=== PATIENT | female | born 1995 | race American Indian/Alaskan Native ===

== ENCOUNTER 2016-09-23 13:21 | Emergency (ER) | payer OTHER ==
[2016-09-23 13:21] VITALS: BMI 22.8
[2016-09-23 13:29] VITALS: RESP 16
[2016-09-23] MEDS ORDERED: Sodium Chloride 0.9% 1,000 ML IV STA (14:00)
--- NOTE | 2016-09-23 14:03 | ED PDOC ---
HPI: Abdomen Time Seen by Provider: 09/23/16 14:01 Chief Complaint (Nursing): Abdominal Pain Chief Complaint (Provider): abdominal pain History Per: Patient (21 y/o female Cxn 2 years ago here with LLQ pain worsening since last night. STates she notes bodyaches as well. Has had lower pelvic pain x 1 year ongoing associated with dysparenia. Denies any vaginal discharge. Denies any dysuria.) Past Medical History Reviewed: Historical Data, Nursing Documentation, Vital Signs Vital Signs: Last Vital Signs Temp 99.0 F 09/23/16 13:26 Pulse 106 H 09/23/16 13:26 Resp 16 09/23/16 13:26 BP 132/60 09/23/16 13:26 Pulse Ox 100 09/23/16 19:07 - Surgical History Surgical History: (June 2014) - Family History Family History: States: No Known Family Hx - Home Medications Home Medications: Ambulatory Orders Medication Instructions Recorded Naproxen [Naprosyn] 1 tab PO BID PRN #25 tab 06/23/15 Ondansetron ODT [Zofran ODT] 1 odt PO BID PRN #6 odt 06/23/15 Naproxen 375 mg PO Q8 PRN #21 tab 09/17/15 diaZEpam [Valium] 5 mg PO DAILY PRN #2 tab 09/17/15 Doxycycline Monohydrate 100 mg PO BID #28 tablet 09/23/16 Metronidazole [Flagyl] 1 tab PO BID #28 tablet 09/23/16 Naproxen [Naprosyn Tab] 375 mg PO Q8 PRN #21 tab 09/23/16 Pantoprazole Sodium [Protonix] 20 mg PO DAILY #14 tablet. 09/23/16 oxyCODONE/Acetaminophen [Percocet 1 ea PO Q6 PRN #8 tab 09/23/16 5/325 mg Tab] - Allergies Allergies/Adverse Reactions: Allergies Allergy/AdvReac Type Severity Reaction Status Date / Time No Known Allergies Allergy Verified 09/23/16 13:26 Review of Systems ROS Statement: Except As Marked, All Systems Reviewed And Found Negative Gastrointestinal: Positive for: Abdominal Pain Physical Exam - Reviewed Nursing Documentation Reviewed: Yes Vital Signs Reviewed: Yes - Physical Exam Appears: Positive for: Well, Non-toxic, No Acute Distress Head Exam: Positive for: ATRAUMATIC, NORMAL INSPECTION, NORMOCEPHALIC Skin: Positive for: Normal Color, Warm, DRY Eye Exam: Positive for: EOMI, Normal appearance, PERRL ENT: Positive for: Normal ENT Inspection Neck: Positive for: Normal, Painless ROM Cardiovascular/Chest: Positive for: Regular Rate, Rhythm Respiratory: Positive for: CNT, Normal Breath Sounds Gastrointestinal/Abdominal: Positive for: Normal Exam, Bowel Sounds, Soft Pelvic Exam: Positive for: Tender W/Cervical Motion, Tender Adnexa, Tender Uterus. Negative for: Discharge Back: Positive for: Normal Inspection Extremity: Positive for: Normal ROM Neurologic/Psych: Positive for: Alert, Oriented - Laboratory Results Result Diagrams: 09/23/16 14:30 09/23/16 14:30 Urine POC: Negative Urine dip results: Negative for: Leukocyte Esterase, Blood, Nitrate, Ketones, Glucose, Bilirubin, Protein - ECG O2 Sat by Pulse Oximetry: 100 - Progress ED Course And Treament: morphine 4mg iv x 1 dose pepcid 20 mg iv x 1 dose NS 1 liter 500ml per hour Pelvic US: FINDINGS: Examination limited by bowel gas. UTERUS: Measures 8.0 x 6.0 x 3.2 cm. Anteverted. ENDOMETRIUM: Measures 1 mm in diameter. CERVIX: No cervical abnormality identified. RIGHT OVARY: Measures 2.5 x 3.4 x 1.4 cm. Blood flow is demonstrated. LEFT OVARY: Measures 2.7 x 3.0 x 2.1 cm. Blood flow is demonstrated. 1.5 cm left ovarian dominant follicle/cyst. FREE FLUID: No significant free fluid noted. OTHER FINDINGS: None. IMPRESSION: Examination limited by bowel gas. No acute findings. See above. PATIENT TREATED WITH ROCEPHIN 250 MG IM X 1 DOSE [address] abd/pelvis IMPRESSION: 1. Lack of oral contrast opacification limits evaluation of the bowel. Apparent thickening of the some of the small bowel loops, raising suspicion for enteritis. Stool is noted throughout the colon. Correlate clinically. 2. Mild hepatomegaly. The remainder of the findings are as described above. Thank you for allowing us to participate in the care of your patient. Dictated and Authenticated by: Hermelindo Echeverria MD Disposition - Clinical Impression Clinical Impression: Abdominal pain in female - Patient ED Disposition Is Patient to be Admitted: No - Disposition [facility] Disposition: Routine/Home Disposition Time: 19:06 Condition: FAIR Prescriptions: Doxycycline Monohydrate 100 mg PO BID #28 tablet Metronidazole [Flagyl] 1 tab PO BID #28 tablet Naproxen [Naprosyn Tab] 375 mg PO Q8 PRN #21 tab PRN Reason: Pain, Moderate (4-7) oxyCODONE/Acetaminophen [Percocet 5/325 mg Tab] 1 ea PO Q6 PRN #8 tab PRN Reason: Pain, Severe (8-10) Pantoprazole Sodium [Protonix] 20 mg PO DAILY #14 tablet. Instructions: Pelvic Pain in Women (ED) Forms: [facility] ED School/Work Excuse
[2016-09-23 14:46] LABS: BASO % 0.4 % (0.0-2.0); EOS % 0.1 % (0.0-4.0); HEMATOCRIT 38.4 % (34.0-47.0); LYMPH # 0.4 K/uL (1.0-4.3); LYMPH % 5.7 % (20.0-40.0); MEAN CELL VOLUME 83.8 fl (81.0-99.0); MEAN CORPUSCULAR HEMOGLOBIN 27.5 pg (27.0-31.0); MEAN CORPUSCULAR HGB CONC 32.8 g/dL (33.0-37.0); MEAN PLATELET VOLUME 9.9 fl (7.2-11.7); MONO # 0.7 K/uL (0.0-0.8); MONO % 11.6 % (0.0-10.0); NEUT # 5.1 K/uL (1.8-7.0); NEUT % 82.2 % (50.0-75.0); PLATELET COUNT 154 K/uL (130-400); RED CELL DISTRIBUTION WIDTH 13.5 % (11.5-14.5); WHITE BLOOD COUNT 6.2 K/uL (4.8-10.8)
[2016-09-23 14:50] LABS: ALB/GLOB RATIO 1.4 (1.0-2.1); ALKALINE PHOSPHATASE 55 U/L (38-126); ALT/SGPT 30 U/L (9-52); AST/SGOT 30 U/L (14-36); BILIRUBIN,TOTAL 0.6 mg/dl (0.2-1.3); BLOOD UREA NITROGEN 8 mg/dl (7-17); CALCIUM 9.2 mg/dL (8.4-10.2); CARBON DIOXIDE 24 mmol/L (22-30); CHLORIDE 101 mmol/L (98-107); GFR AFRICAN-AMERICAN > 60; GLUCOSE,RANDOM 118 mg/dL (65-105); LIPASE 21 U/L (23-300); POTASSIUM 3.4 MMOL/L (3.6-5.0); SODIUM 138 mmol/l (132-148); TOTAL PROTEIN 8.1 G/DL (6.3-8.2)
--- NOTE | 2016-09-23 15:57 | US ---
HISTORY: left adnexal tenderness COMPARISON: Pelvic ultrasound performed 06/14/15 TECHNIQUE: Transvaginal pelvic ultrasound FINDINGS: Examination limited by bowel gas. UTERUS: Measures 8.0 x 6.0 x 3.2 cm. Anteverted. ENDOMETRIUM: Measures 1 mm in diameter. CERVIX: No cervical abnormality identified. RIGHT OVARY: Measures 2.5 x 3.4 x 1.4 cm. Blood flow is demonstrated. LEFT OVARY: Measures 2.7 x 3.0 x 2.1 cm. Blood flow is demonstrated. 1.5 cm left ovarian dominant follicle/cyst. FREE FLUID: No significant free fluid noted. OTHER FINDINGS: None. IMPRESSION: Examination limited by bowel gas. No acute findings. See above.
[2016-09-23] MEDS ORDERED: cefTRIAXone (Rocephin) 250 mg Inj IM ONE (17:06)
[2016-09-23 17:07] LABS: NEUTROPHIL 79 % (42-75); TOTAL CELLS COUNTED 100
[2016-09-23] MEDS ORDERED: cefTRIAXone (Rocephin) 250 mg Inj ONE (18:05)
[2016-09-23] MEDS ORDERED: Sodium Chloride 0.9% 50 ML IV ONE (18:48)
[2016-09-23] MEDS ORDERED: Iohexol 300 100 ML IJ ONE (18:48)
[2016-09-23 20:25] VITALS: BP 101/60; PULSE 87; TEMP 98; O2SAT 99
--- NOTE | 2016-09-24 10:23 | CT ---
PROCEDURE: CT Abdomen and Pelvis with contrast HISTORY: Pelvic pain 1 year duration. Dyspareunia By history, negative test (concurrent with this examination). COMPARISON: September 23, 2016. Pelvic ultrasound TECHNIQUE: Contrast dose: 90 cc Omnipaque 300. Radiation dose: Total exam DLP = 352.52 mGy-cm. This CT exam was performed using one or more of the following dose reduction techniques: Automated exposure control, adjustment of the mA and/or kV according to patient size, and/or use of iterative reconstruction technique. FINDINGS: LOWER THORAX: Unremarkable. LIVER: Unremarkable. No gross lesion or ductal dilatation. GALLBLADDER AND BILE DUCTS: Unremarkable. PANCREAS: Unremarkable. No gross lesion or ductal dilatation. SPLEEN: Unremarkable. ADRENALS: Unremarkable. No mass. KIDNEYS AND URETERS: Unremarkable. No hydronephrosis. No solid mass. VASCULATURE: Unremarkable. No aortic aneurysm. BOWEL: Unremarkable. No obstruction. No gross mural thickening. APPENDIX: Normal appendix. PERITONEUM: Unremarkable. No free fluid. No free air. LYMPH NODES: Unremarkable. No enlarged lymph nodes. BLADDER: Unremarkable. REPRODUCTIVE: Endometrial canal measures approximately 10 mm. Trace free fluid identified in the pelvis/cul de sac. BONES: No acute fracture. OTHER FINDINGS: None. IMPRESSION: No acute findings related to/accounting for the clinical presentation. Additional benign and/or incidental findings described above. Concordant results (preliminary interpretation) provided by [facility]. Procedure Completed: 19:07. Preliminary ([facility]) Report: Dictated and Authenticated: 19:53. Final Interpretation: 10:21. September 12, 2016.
== END 2016-09-23 20:25 | disposition home or self-care (01) ==
LOC: H.ER 13:21
DX: N83.202 Unspecified ovarian cyst, left side (principal)

== ENCOUNTER 2016-12-11 18:23 | Inpatient (IN) | payer OTHER ==
[2016-12-11 18:23] VITALS: BMI 22.8
[2016-12-11 20:02] LABS: BASO % 0.3 % (0.0-2.0); EOS % 0.4 % (0.0-4.0); HEMATOCRIT 36.5 % (34.0-47.0); LYMPH # 1.3 K/uL (1.0-4.3); LYMPH % 10.6 % (20.0-40.0); MEAN CELL VOLUME 82.7 fl (81.0-99.0); MEAN CORPUSCULAR HEMOGLOBIN 27.5 pg (27.0-31.0); MEAN CORPUSCULAR HGB CONC 33.3 g/dL (33.0-37.0); MEAN PLATELET VOLUME 9.6 fl (7.2-11.7); MONO # 0.7 K/uL (0.0-0.8); MONO % 5.7 % (0.0-10.0); NEUT # 10.1 K/uL (1.8-7.0); NRBC % 0.1 % (0.0-0.0); RED CELL DISTRIBUTION WIDTH 14.1 % (11.5-14.5); WHITE BLOOD COUNT 12.1 K/uL (4.8-10.8)
[2016-12-11 20:16] LABS: ALB/GLOB RATIO 1.2 (1.0-2.1); ALKALINE PHOSPHATASE 66 U/L (38-126); ALT/SGPT 22 U/L (9-52); AST/SGOT 18 U/L (14-36); BILIRUBIN,TOTAL 0.6 mg/dl (0.2-1.3); BLOOD UREA NITROGEN 6 mg/dl (7-17); CALCIUM 9.5 mg/dL (8.4-10.2); CARBON DIOXIDE 21 mmol/L (22-30); CHLORIDE 101 mmol/L (98-107); GFR AFRICAN-AMERICAN > 60; GLUCOSE,RANDOM 86 mg/dL (65-105); POTASSIUM 3.5 MMOL/L (3.6-5.0); SODIUM 136 mmol/l (132-148); TOTAL PROTEIN 8.1 G/DL (6.3-8.2)
--- NOTE | 2016-12-11 20:46 | ED PDOC ---
HPI: Abdomen Time Seen by Provider: 12/11/16 19:35 Chief Complaint (Nursing): GI Problem History Per: Patient History/Exam Limitations: no limitations Onset/Duration Of Symptoms: Days (x2) Current Symptoms Are (Timing): Still Present Additional Complaint(s): Valarie Stokes is a 21 year old female that presents to the ED with a chief complaint of abdominal pain, nausea, nonbloody vomiting, and nonbloody diarrhea that she has been experiencing for the past 2 days. Patient reports that she has been PO intolerant, and has experienced decreased urination. Of Note: Patient is G2, P1, EGA 9 weeks. OBGYN: Dr. Jimbo Salazar : 2 Para: 1 Past Medical History Reviewed: Historical Data, Nursing Documentation, Vital Signs Vital Signs: Last Vital Signs Temp 98.9 F 12/11/16 18:33 Pulse 76 12/11/16 18:33 Resp 16 12/11/16 18:33 BP 105/68 12/11/16 18:33 Pulse Ox 99 12/11/16 23:06 - Medical History PMH: No Chronic Diseases - Surgical History Surgical History: (June 2014) - Family History Family History: States: Unknown Family Hx - Social History Current smoker - smoking cessation education provided: No Alcohol: None Drugs: Denies - Home Medications Home Medications: Ambulatory Orders Medication Instructions Recorded Naproxen [Naprosyn] 1 tab PO BID PRN #25 tab 06/23/15 Ondansetron ODT [Zofran ODT] 1 odt PO BID PRN #6 odt 06/23/15 Naproxen 375 mg PO Q8 PRN #21 tab 09/17/15 diaZEpam [Valium] 5 mg PO DAILY PRN #2 tab 09/17/15 Doxycycline Monohydrate 100 mg PO BID #28 tablet 09/23/16 Metronidazole [Flagyl] 1 tab PO BID #28 tablet 09/23/16 Naproxen [Naprosyn Tab] 375 mg PO Q8 PRN #21 tab 09/23/16 Pantoprazole Sodium [Protonix] 20 mg PO DAILY #14 tablet. 09/23/16 oxyCODONE/Acetaminophen [Percocet 1 ea PO Q6 PRN #8 tab 09/23/16 5/325 mg Tab] - Allergies Allergies/Adverse Reactions: Allergies Allergy/AdvReac Type Severity Reaction Status Date / Time No Known Allergies Allergy Verified 09/23/16 13:26 Review of Systems Gastrointestinal: Positive for: Nausea, Vomiting, Abdominal Pain, Diarrhea, Other (Patient unable to tolerate PO. ) Genitourinary Female: Negative for: Frequency (decreased urination) Physical Exam - Reviewed Nursing Documentation Reviewed: Yes Vital Signs Reviewed: Yes - Physical Exam Appears: Positive for: Non-toxic, No Acute Distress Head Exam: Positive for: ATRAUMATIC, NORMOCEPHALIC Skin: Positive for: Normal Color, Warm ENT: Positive for: Other (dry mucous membranes). Negative for: Normal ENT Inspection Gastrointestinal/Abdominal: Positive for: Tenderness (Suprapubic tenderness). Negative for: Normal Exam Neurologic/Psych: Positive for: Alert, Oriented. Negative for: Motor/Sensory Deficits - Laboratory Results Result Diagrams: 12/11/16 19:52 12/11/16 19:52 - ECG O2 Sat by Pulse Oximetry: 99 (RA) Pulse Ox Interpretation: Normal Medical Decision Making Medical Decision Making: Impression: 21 year old female with abdominal pain, nausea, and vomiting in setting of early Plan: * Beta HCG * CMP * Urine Dip * Urine * Urinalysis * Dextrose 5% 1000 mLs at 1000 mLs/hr * Reglan 10 mg IVPB * US OB Transvaginal * Reevaluation 22:49 Labs reviewed, showed no clinically significant abnormalities with the exception of large ketones in urine. Patient reports mild improvement in symptoms. Discussed with Dr. Salazar, patient's OBGYN, patient will be hospitalized as observation patient. Clinical Impression: Hyperemesis Gravidarum Scribe Attestation: Documented by Jackie Prabhakar, acting as a scribe for Gilles Simmons MD. Provider Scribe Attestation: All medical record entries made by the Scribe were at my direction and personally dictated by me. I have reviewed the chart and agree that the record accurately reflects my personal performance of the history, physical exam, medical decision making, and the department course for this patient. I have also personally directed, reviewed, and agree with the discharge instructions and disposition. Disposition - Clinical Impression Clinical Impression: Hyperemesis gravidarum - Disposition Disposition Time: 22:49 Condition: FAIR - Pt Status Changed To: Hospital Disposition Of: Observation
[2016-12-11] MEDS: Dextrose 5%/0.45% NS 1,000 ML IV SCH ×3 (20:59→23:45)
[2016-12-11] MEDS ORDERED: Dextrose 5%/0.45% NS 1,000 ML IV SCH ×2 (22:00→23:30)
[2016-12-11 23:23] LABS: RBC URINE 2 /hpf (0-3); URINE BACTERIA RARE (<OCC); URINE BILIRUBIN NEGATIVE (NEGATIVE); URINE BLOOD NEGATIVE (NEGATIVE); URINE COLOR YELLOW (YELLOW); URINE GLUCOSE (UA) NEG (Normal); URINE KETONE 80 mg/dL (NEGATIVE); URINE LEUKOCYTE ESTERASE NEG Leu/uL (Negative); URINE PROTEIN NEGATIVE (NEGATIVE); URINE UROBILINOGEN 0.2-1.0 mg/dL (0.2-1.0); WBC URINE 2 /hpf (0-5)
[2016-12-12] MEDS: Dextrose 5%/0.45% NS 1,000 ML IV SCH ×5 (00:30→16:36)
[2016-12-12] MEDS: Prenatal Multivit/Folic Acid/Iron Tab PO SCH (08:32)
[2016-12-12] MEDS ORDERED: Patient's Own Med (Pnv With Ca,No.72/Iron/Fa [Pnv Prenatal Plus Multivit Tab] 1 TAB) PO SCH (09:00)
--- NOTE | 2016-12-12 10:07 | US ---
HISTORY: Abdominal pain in COMPARISON: Comparison made with prior study 09/23/2016 TECHNIQUE: Transvaginal sonographic evaluation of the pelvis performed FINDINGS: UTERUS: Measures approximately 9.8 x 4.6 x 7.1 cm cm. Normal in size and appearance. No fibroid or other mass lesion seen. There is a single living intrauterine gestation with measurements as follows: Gestational sac: MS D = 3.83 cm = 9 weeks 0 days Yolk sac: 0.2 cm pole: 2.42 cm = 9 weeks 1 day Heart motion: 178 BPM Average ultrasound age: 9 weeks 1 day +/-0 weeks 4 days SUKI based on average ultrasound age: 0407/15/2017 CERVIX: Cervix is closed measuring approximately 3.8 cm. There is small nabothian cyst RIGHT OVARY: Measures approximately 2.4 x 1.1 x 2.4 cm. No solid mass. Normal flow. LEFT OVARY: Measures approximately 2.5 x 1.9 x 2.2 cm. No solid mass. Normal flow. FREE FLUID: No gross free fluid seen in the cul de sac. IMPRESSION: Single living intrauterine gestation with average ultrasound age approximately 9 weeks 1 day +/-0 weeks 4 days. Preliminary report provided by overnight radiology service
[2016-12-13 00:54] VITALS: O2SAT 99
[2016-12-13 07:31] VITALS: BP 95/61; PULSE 76; RESP 20; TEMP 98.2
[2016-12-13] MEDS: Prenatal Multivit/Folic Acid/Iron Tab PO SCH (08:37)
--- NOTE | 2016-12-13 11:07 | CP.PCM.HP ---
History of Present Illness - History of Present Illness History of Present Illness: iup at 9+ weeks nausea and vomiting Present on Admission - Present on Admission Any Indicators Present on Admission: No Review of Systems - Constitutional Constitutional: As Per HPI - EENT Eyes: As Per HPI Ears: As Per HPI - Breasts Breasts: As Per HPI - Cardiovascular Cardiovascular: As Per HPI - Respiratory Respiratory: As Per HPI - Gastrointestinal Gastrointestinal: As Per HPI - Genitourinary Genitourinary: As Per HPI - Reproductive: Female Reproductive:Female: As Per HPI - Menstruation Menstruation: As Per HPI - Musculoskeletal Musculoskeletal: As Per HPI - Integumentary Integumentary: As Per HPI - Neurological Neurological: As Per HPI - Psychiatric Psychiatric: As Per HPI Past Patient History - Past Medical History & Family History Past Medical History?: No - Past Social History Smoking Status: Never Smoked - MUSCULOSKELETAL/RHEUMATOLOGICAL Hx Falls: No - PSYCHIATRIC Hx Substance Use: No - SURGICAL HISTORY Hx Surgeries: Yes Hx Section: Yes - ANESTHESIA Hx Anesthesia: Yes Hx Anesthesia Reactions: No Meds Allergies/Adverse Reactions: Allergies Allergy/AdvReac Type Severity Reaction Status Date / Time No Known Allergies Allergy Verified 09/23/16 13:26 Results - Vital Signs Recent Vital Signs: Last Vital Signs Temp 98.2 F 12/13/16 07:31 Pulse 76 12/13/16 07:31 Resp 20 12/13/16 07:31 BP 95/61 L 12/13/16 07:31 Pulse Ox 99 12/13/16 07:31 - Labs Result Diagrams: 12/11/16 19:52 12/11/16 19:52
--- NOTE | 2016-12-13 11:14 | CP.PCM.HP ---
Present on Admission - Present on Admission Any Indicators Present on Admission: No Past Patient History - Past Medical History & Family History Past Medical History?: No - Past Social History Smoking Status: Never Smoked - MUSCULOSKELETAL/RHEUMATOLOGICAL Hx Falls: No - PSYCHIATRIC Hx Substance Use: No - SURGICAL HISTORY Hx Surgeries: Yes Hx Section: Yes - ANESTHESIA Hx Anesthesia: Yes Hx Anesthesia Reactions: No Meds Allergies/Adverse Reactions: Allergies Allergy/AdvReac Type Severity Reaction Status Date / Time No Known Allergies Allergy Verified 09/23/16 13:26 Results - Vital Signs Recent Vital Signs: Last Vital Signs Temp 98.2 F 12/13/16 07:31 Pulse 76 12/13/16 07:31 Resp 20 12/13/16 07:31 BP 95/61 L 12/13/16 07:31 Pulse Ox 99 12/13/16 07:31 - Labs Result Diagrams: 12/11/16 19:52 12/11/16 19:52 Assessment & Plan - Assessment and Plan (Free Text) Assessment: nausea and vomiting Plan: continue to monitor and continue medication
--- NOTE | 2016-12-13 11:19 | CP.PCM.DIS ---
Provider - Provider Date of Admission: 12/11/16 22:18 Attending physician: Jimbo Salazar MD Time Spent in preparation of Discharge (in minutes): 20 Hospital Course - Lab Results Lab Results: Most Recent Lab Values WBC 12.1 K/uL (4.8-10.8) H D 12/11/16 19:52 RBC 4.41 Mil/uL (3.80-5.20) 12/11/16 19:52 Hgb 12.1 g/dL (12.0-16.0) 12/11/16 19:52 Hct 36.5 % (34.0-47.0) 12/11/16 19:52 MCV 82.7 fl (81.0-99.0) 12/11/16 19:52 MCH 27.5 pg (27.0-31.0) 12/11/16 19:52 MCHC 33.3 g/dL (33.0-37.0) 12/11/16 19:52 RDW 14.1 % (11.5-14.5) 12/11/16 19:52 Plt Count 250 K/uL (130-400) 12/11/16 19:52 MPV 9.6 fl (7.2-11.7) 12/11/16 19:52 Neut % (Auto) 83.0 % (50.0-75.0) H 12/11/16 19:52 Lymph % (Auto) 10.6 % (20.0-40.0) L 12/11/16 19:52 [place] % (Auto) 5.7 % (0.0-10.0) 12/11/16 19:52 Eos % (Auto) 0.4 % (0.0-4.0) 12/11/16 19:52 Baso % (Auto) 0.3 % (0.0-2.0) 12/11/16 19:52 Neut # 10.1 K/uL (1.8-7.0) H 12/11/16 19:52 Lymph # 1.3 K/uL (1.0-4.3) 12/11/16 19:52 [place] # 0.7 K/uL (0.0-0.8) 12/11/16 19:52 Eos # 0.0 K/uL (0.0-0.7) 12/11/16 19:52 Baso # 0.0 K/uL (0.0-0.2) 12/11/16 19:52 Sodium 136 mmol/l (132-148) 12/11/16 19:52 Potassium 3.5 MMOL/L (3.6-5.0) L 12/11/16 19:52 Chloride 101 mmol/L (98-107) 12/11/16 19:52 Carbon Dioxide 21 mmol/L (22-30) L 12/11/16 19:52 Anion Gap 18 (10-20) 12/11/16 19:52 BUN 6 mg/dl (7-17) L 12/11/16 19:52 Creatinine 0.5 mg/dL (0.7-1.2) L 12/11/16 19:52 Est GFR ( Amer) > 60 12/11/16 19:52 Est GFR (Non-Af Amer) > 60 12/11/16 19:52 Random Glucose 86 mg/dL (65-105) 12/11/16 19:52 Calcium 9.5 mg/dL (8.4-10.2) 12/11/16 19:52 Total Bilirubin 0.6 mg/dl (0.2-1.3) 12/11/16 19:52 AST 18 U/L (14-36) 12/11/16 19:52 ALT 22 U/L (9-52) 12/11/16 19:52 Alkaline Phosphatase 66 U/L (38-126) 12/11/16 19:52 Total Protein 8.1 G/DL (6.3-8.2) 12/11/16 19:52 Albumin 4.4 g/dL (3.5-5.0) 12/11/16 19:52 Globulin 3.7 gm/dL (2.2-3.9) 12/11/16 19:52 Albumin/Globulin Ratio 1.2 (1.0-2.1) 12/11/16 19:52 Beta HCG, Quant 309873.00 mIU/mL 12/11/16 19:52 Urine Color Yellow (YELLOW) 12/11/16 23:11 Urine Clarity Cloudy (Clear) 12/11/16 23:11 Urine pH 6.0 (5.0-8.0) 12/11/16 23:11 Ur Specific [place] 1.021 (1.003-1.030) 12/11/16 23:11 Urine Protein Negative mg/dL (NEGATIVE) 12/11/16 23:11 Urine Glucose (UA) Neg mg/dL (Normal) 12/11/16 23:11 Urine Ketones 80 mg/dL (NEGATIVE) 12/11/16 23:11 Urine Blood Negative (NEGATIVE) 12/11/16 23:11 Urine Nitrate Negative (NEGATIVE) 12/11/16 23:11 Urine Bilirubin Negative (NEGATIVE) 12/11/16 23:11 Urine Urobilinogen 0.2-1.0 mg/dL (0.2-1.0) 12/11/16 23:11 Ur Leukocyte Esterase Neg Arely/uL (Negative) 12/11/16 23:11 Urine RBC (Auto) 2 /hpf (0-3) 12/11/16 23:11 Urine Microscopic WBC 2 /hpf (0-5) 12/11/16 23:11 Ur Squamous Epith Cells 3 /hpf (0-5) 12/11/16 23:11 Urine Bacteria Rare (<OCC) 12/11/16 23:11 - Hospital Course Hospital Course: uneventful Discharge Exam - Head Exam Head Exam: ATRAUMATIC, NORMOCEPHALIC - Respiratory Exam Additional comments: problem improved Discharge Plan - Follow Up Plan Condition: FAIR Instructions: Hyperemesis Gravidarum (DC), Dehydration (DC) Additional Instructions: call office if any problems
== END 2016-12-13 11:34 | disposition home or self-care (01) | DRG 781 ==
LOC: H.ER 18:23 → OBSVTOIN 22:18 → H.ERHOLD 22:18 → H.MEDSURG1 12-12 00:02
PROVIDERS: ADMIT Specialist; ATTEND Specialist
DX: O21.1 Hyperemesis gravidarum with metabolic disturbance (principal); Z3A.09 9 weeks gestation of pregnancy

== ENCOUNTER 2017-02-11 12:01 | Emergency (ER) | payer BC, OTHER ==
[2017-02-11 12:02] VITALS: BMI 22.8
[2017-02-11 12:08] VITALS: O2SAT 99
--- NOTE | 2017-02-11 12:37 | ED PDOC ---
Syncope/Near Syncope/Dizziness Time Seen by Provider: 02/11/17 12:04 Chief Complaint (Nursing): Dizziness/Lightheaded Chief Complaint (Provider): Dizzy History Per: Patient Additional Complaint(s): 21 yo female, no PMH, presents to ED 18 w , , with complaints of bilateral wrist numbness and tingling to her hands, abdominal cramping and intermittent episodes of dizziness Past Medical History Reviewed: Nursing Documentation, Vital Signs Vital Signs: Last Vital Signs Temp 96.9 F L 02/11/17 12:05 Pulse 64 02/11/17 12:05 Resp 16 02/11/17 12:05 BP 107/57 L 02/11/17 12:05 Pulse Ox 99 02/11/17 12:05 - Medical History PMH: No Chronic Diseases - Surgical History Surgical History: (June 2014) - Family History Family History: States: Unknown Family Hx - Living Arrangements Living Arrangements: With Family - Social History Current smoker - smoking cessation education provided: No Alcohol: None Drugs: Denies - Home Medications Home Medications: Ambulatory Orders Medication Instructions Recorded Pnv with Ca,No.72/Iron/FA [Pnv 1 tab PO DAILY 12/11/16 Plus] - Allergies Allergies/Adverse Reactions: Allergies Allergy/AdvReac Type Severity Reaction Status Date / Time No Known Allergies Allergy Verified 09/23/16 13:26 Review of Systems ROS Statement: Except As Marked, All Systems Reviewed And Found Negative Gastrointestinal: Positive for: Abdominal Pain Musculoskeletal: Positive for: Other (wrist pain) Neurological: Positive for: Dizziness Physical Exam - Reviewed Nursing Documentation Reviewed: Yes Vital Signs Reviewed: Yes - Physical Exam Appears: Positive for: Well, Non-toxic, No Acute Distress Head Exam: Positive for: ATRAUMATIC, NORMAL INSPECTION, NORMOCEPHALIC Skin: Positive for: Normal Color, Warm, DRY Eye Exam: Positive for: EOMI, Normal appearance, PERRL ENT: Positive for: Normal ENT Inspection Neck: Positive for: Normal, Painless ROM Cardiovascular/Chest: Positive for: Regular Rate, Rhythm Respiratory: Positive for: CNT, Normal Breath Sounds Gastrointestinal/Abdominal: Positive for: Normal Exam, Bowel Sounds, Soft Back: Positive for: Normal Inspection Extremity: Positive for: Normal ROM, Other ((+) tinel and phalen). Negative for : Tenderness, Deformity, Swelling Neurologic/Psych: Positive for: Alert, Oriented - Laboratory Results Result Diagrams: 02/11/17 12:35 02/11/17 12:35 - ECG O2 Sat by Pulse Oximetry: 99 Medical Decision Making Medical Decision Making: Common problems in discussed with Pt, marina round ligament pain and carpal tunnel Labs and Us resulted and relieved with Pt who demonstrated full understanding Pt doing well on re-eval, no complaints of pain, dizziness. Stable for discharge at this time. Advised to follow up with OB Disposition - Clinical Impression Clinical Impression: Carpal tunnel syndrome, Abdominal pain affecting - Patient ED Disposition Is Patient to be Admitted: No - Disposition Disposition: Routine/Home Disposition Time: 16:55 Condition: STABLE Instructions: Carpal Tunnel Syndrome (ED), Abdominal Pain in (ED) Forms: [facility] (Czech) - POA Present On Arrival: None
[2017-02-11 13:10] LABS: ALKALINE PHOSPHATASE 47 U/L (38-126); ALT/SGPT 28 U/L (9-52); AST/SGOT 18 U/L (14-36); BILIRUBIN,TOTAL 0.2 mg/dl (0.2-1.3); BLOOD UREA NITROGEN 4 mg/dl (7-17); CALCIUM 8.8 mg/dL (8.4-10.2); CARBON DIOXIDE 23 mmol/L (22-30); CHLORIDE 106 mmol/L (98-107); GFR AFRICAN-AMERICAN > 60; GLUCOSE,RANDOM 83 mg/dL (65-105); POTASSIUM 3.5 MMOL/L (3.6-5.0); SODIUM 136 mmol/l (132-148); TOTAL PROTEIN 6.8 G/DL (6.3-8.2)
[2017-02-11 13:38] LABS: BASO % 0.2 % (0.0-2.0); EOS # 0.1 K/uL (0.0-0.7); EOS % 1.2 % (0.0-4.0); LYMPH # 1.3 K/uL (1.0-4.3); LYMPH % 19.3 % (20.0-40.0); MEAN CELL VOLUME 84.7 fl (81.0-99.0); MEAN CORPUSCULAR HEMOGLOBIN 27.7 pg (27.0-31.0); MEAN CORPUSCULAR HGB CONC 32.7 g/dL (33.0-37.0); MEAN PLATELET VOLUME 9.9 fl (7.2-11.7); MONO # 0.4 K/uL (0.0-0.8); MONO % 6.4 % (0.0-10.0); NEUT # 5.1 K/uL (1.8-7.0); NEUT % 72.9 % (50.0-75.0); NRBC % 0.1 % (0.0-0.0); RED CELL DISTRIBUTION WIDTH 15.2 % (11.5-14.5)
--- NOTE | 2017-02-11 16:31 | US ---
PROCEDURE: OB Pelvic Ultrasound HISTORY: 18 w and pain COMPARISON: None available. FINDINGS: UTERUS: Gestational sac: Single intrauterine fetus in breech presentation. Heart rate: 143 bpm. BPD: 4.27 cm corresponding to 18 weeks and 6 days of gestational age. HC: 15.6 cm corresponding to 18 weeks and 4 days of gestational age. AC: 12.8 cm corresponding to 18 weeks and 3 days of gestational age. FL: 2.8 cm corresponding to 18 weeks and 6 days of gestational age. age (Ultrasound estimated): 18 weeks and 5 days Regla-gestational hemorrhage: None. Date of delivery (Ultrasound estimated) : 07/10/2017 Placenta is fundal and posterior. CERVIX: Long and closed. No cervical abnormality seen. RIGHT OVARY: Not visualized. LEFT OVARY: Not visualized. FREE FLUID: None. OTHER FINDINGS: None. IMPRESSION: Single live intrauterine fetus in breech presentation. Placenta is fundal and posterior. The mean gestational age by ultrasound is 18 weeks and 5 days. The ultrasound dates correspond with the clinical dates. Please note this is a limited OB ultrasound performed in the emergency room, dedicated anatomic survey is recommended.
[2017-02-11 16:55] VITALS: BP 127/68; PULSE 91; RESP 17; TEMP 98.1
== END 2017-02-11 16:54 | disposition home or self-care (01) ==
LOC: H.ER 12:01
DX: O26.892 Other specified pregnancy related conditions, second trimester (principal); G56.00 Carpal tunnel syndrome, unspecified upper limb; Z3A.18 18 weeks gestation of pregnancy; O99.352 Diseases of the nervous system complicating pregnancy, second trimester

== ENCOUNTER 2017-03-26 11:29 | Observation (INO) | payer BC, OTHER ==
--- NOTE | 2017-03-26 12:08 | OBHP ---
Datetime: 03/26/2017 12:05 IP Adm Impression: No Active Labor IP Admit Plan: Observation/Evaluation Admit Comment, IP Provider: Patient presents labor and delivery complaining of Chest pain 1 days d uration. Patient has a partial bleeding which which reports good movement. Patient was transfer red to the emergency room for evaluation of Chest pain Pelvic Type - PN: Not Done Extremities - PN: Normal Abdomen - PN: Normal Back - PN: Not Done Breast - PN: Not Done Lungs - PN: Normal Heart - PN: Normal Neurologic - PN: Normal HEENT - PN: Normal General - PN: Normal EGA AdmitDate IP: 24.0 Vital Signs Provider: Reviewed IP Chief Complaint: Other Genitourinary Exam: Not Done DTRs - PN: Not Done
--- NOTE | 2017-03-26 12:33 | ED PDOC ---
HPI: Chest Pain Time Seen by Provider: 03/26/17 12:22 Chief Complaint (Nursing): Chest Pain History Per: Patient Onset/Duration Of Symptoms: Hrs (1) Current Symptoms Are (Timing): Still Present Severity: Mild Pain Scale Rating Of: 2 Quality: Pressure Associated Symptoms: denies: Dyspnea Modifying Factors: None Exacerbating Factors: None Alleviating Factors: None Additional Complaint(s): Referred from Ob for chest pressure x 1 day. No SOB. No cough or fever. Has had pain but no swelling lower ext. Approx 24 weeks gestation. Past Medical History Vital Signs: Last Vital Signs Temp 98.1 F 03/26/17 12:26 Pulse 70 03/26/17 12:26 Resp 18 03/26/17 12:26 BP 106/65 03/26/17 12:26 Pulse Ox 99 03/26/17 12:26 - Medical History PMH: No Chronic Diseases - Surgical History Surgical History: (June 2014) - Family History Family History: States: Unknown Family Hx - Home Medications Home Medications: Ambulatory Orders Medication Instructions Recorded Pnv with Ca,No.72/Iron/FA [Pnv 1 tab PO DAILY 12/11/16 Plus] - Allergies Allergies/Adverse Reactions: Allergies Allergy/AdvReac Type Severity Reaction Status Date / Time No Known Allergies Allergy Verified 09/23/16 13:26 Review of Systems ROS Statement: Except As Marked, All Systems Reviewed And Found Negative Cardiovascular: Positive for: Chest Pain Physical Exam - Reviewed Nursing Documentation Reviewed: Yes Vital Signs Reviewed: Yes - Physical Exam Appears: Positive for: Non-toxic, No Acute Distress Head Exam: Positive for: ATRAUMATIC, NORMAL INSPECTION, NORMOCEPHALIC Skin: Positive for: Normal Color, Warm, DRY Eye Exam: Positive for: EOMI, Normal appearance, PERRL ENT: Positive for: Normal ENT Inspection Neck: Positive for: Normal, Painless ROM Cardiovascular/Chest: Positive for: Regular Rate, Rhythm Respiratory: Positive for: CNT, Normal Breath Sounds Gastrointestinal/Abdominal: Positive for: Normal Exam, Bowel Sounds, Soft Back: Positive for: Normal Inspection Extremity: Positive for: Normal ROM. Negative for: Calf Tenderness, Swelling Neurologic/Psych: Positive for: Alert, Oriented - Laboratory Results Result Diagrams: 03/26/17 12:40 03/26/17 12:40 Disposition - Clinical Impression Clinical Impression: Chest pain - Patient ED Disposition Is Patient to be Admitted: Yes - Disposition Referrals: Jimbo Salazar MD [Primary Care Provider] - Disposition Time: 15:06 Condition: FAIR Forms: [employer] ([place]) - Pt Status Changed To: Hospital Disposition Of: Observation - POA Present On Arrival: None
[2017-03-26 12:43] LABS: BASO % 0.5 % (0.0-2.0); EOS # 0.1 K/uL (0.0-0.7); EOS % 1.1 % (0.0-4.0); HEMOGLOBIN 12.4 g/dL (12.0-16.0); LYMPH # 1.6 K/uL (1.0-4.3); LYMPH % 19.8 % (20.0-40.0); MEAN CELL VOLUME 85.4 fl (81.0-99.0); MEAN CORPUSCULAR HEMOGLOBIN 28.6 pg (27.0-31.0); MEAN CORPUSCULAR HGB CONC 33.5 g/dL (33.0-37.0); MEAN PLATELET VOLUME 9.6 fl (7.2-11.7); MONO # 0.6 K/uL (0.0-0.8); MONO % 7.6 % (0.0-10.0); NEUT # 5.6 K/uL (1.8-7.0); NRBC % 0.1 % (0.0-0.0); RBC 4.34 Mil/uL (3.80-5.20); RED CELL DISTRIBUTION WIDTH 14.5 % (11.5-14.5); WHITE BLOOD COUNT 7.9 K/uL (4.8-10.8)
[2017-03-26 12:54] LABS: ALB/GLOB RATIO 1.1 (1.0-2.1); ALBUMIN 3.8 g/dL (3.5-5.0); ALT/SGPT 24 U/L (9-52); AST/SGOT 20 U/L (14-36); BLOOD UREA NITROGEN 5 mg/dl (7-17); CALCIUM 9.2 mg/dL (8.4-10.2); GFR AFRICAN-AMERICAN > 60; GFR NON-AFRICAN AMERICAN > 60
--- NOTE | 2017-03-26 14:28 | US ---
PROCEDURE: Bilateral lower extremity venous duplex Doppler. HISTORY: chest pain COMPARISON: None available. TECHNIQUE: Bilateral common femoral, superficial femoral, popliteal and posterior tibial veins were evaluated. Flow was assessed with color Doppler, compressibility, assessment of phasic flow and augmentation response. FINDINGS: COMMON FEMORAL VEIN: Right CFV: Unremarkable. Left CFV: Unremarkable. SUPERFICIAL FEMORAL VEIN: Right SFV: Unremarkable. Left SFV: Unremarkable. POPLITEAL VEIN: Right Popliteal: Unremarkable. Left Popliteal: Unremarkable. POSTERIOR TIBIAL VEIN: Right PTV: Unremarkable. Left PTV: Unremarkable. OTHER FINDINGS: None. IMPRESSION: No evidence of deep venous thrombosis.
[2017-03-27 00:34] VITALS: RESP 18
--- NOTE | 2017-03-27 08:27 | CP.PCM.HP ---
History of Present Illness - History of Present Illness History of Present Illness: 21 yo ,f, at 20 weeks GA presented to ED c/o left side chest pain started yesterday in the morning after patient had breakfast, 10/10 intensity, pressure , not radiated, associated with chest thightness, SOB and headache. PAtient dinies fever, cough, n,v,abd pain, diarrhea, hx/o chest pain before or heart disease. She reports normal FM and denies vaginal bleeding, vaginal discharged, LOF. Patient seen and examined bediside with Dr Whitaker in Telemetry. PAtient asymptomatic this morning. she denies chest pain, SOB, nv,abd pain. Chest pain is reproducible left lateral side pectoral muscle. PMhx: none Allerrgies: NKDA MEds: PNV PSurghx: C section x 1 PShx: Denies ETOH,rect drugs, cig ED course: Vital stable, EKG normal, troponin neg, Us lower ext neg, d-dimer mild elevated Present on Admission - Present on Admission Any Indicators Present on Admission: No History of DVT/PE: No History of Uncontrolled Diabetes: No Urinary Catheter: No Decubitus Ulcer Present: No Review of Systems - Cardiovascular Cardiovascular: Chest Pain - Respiratory Respiratory: As Per HPI - Gastrointestinal Gastrointestinal: As Per HPI - Genitourinary Genitourinary: As Per HPI - Reproductive: Female Reproductive:Female: As Per HPI Past Patient History - Past Medical History & Family History Past Medical History?: No - Past Social History Smoking Status: Never Smoked - CARDIAC Hx Cardiac Disorders: No - PULMONARY Hx Respiratory Disorders: No - NEUROLOGICAL Hx Neurological Disorder: No - HEENT Hx HEENT Problems: No - RENAL Hx Chronic Kidney Disease: No - ENDOCRINE/METABOLIC Hx Endocrine Disorders: No - HEMATOLOGICAL/ONCOLOGICAL Hx Blood Disorders: No Hx AIDS: No Hx Human Immunodeficiency Virus (HIV): No - INTEGUMENTARY Hx Dermatological Problems: No - MUSCULOSKELETAL/RHEUMATOLOGICAL Hx Musculoskeletal Disorders: No Hx Falls: No - GASTROINTESTINAL Hx Gastrointestinal Disorders: No - GENITOURINARY/GYNECOLOGICAL Hx Genitourinary Disorders: No - PSYCHIATRIC Hx Psychophysiologic Disorder: No Hx Substance Use: No - SURGICAL HISTORY Hx Surgeries: Yes Hx Section: Yes - ANESTHESIA Hx Anesthesia: Yes Hx Anesthesia Reactions: No Meds Allergies/Adverse Reactions: Allergies Allergy/AdvReac Type Severity Reaction Status Date / Time No Known Allergies Allergy Verified 09/23/16 13:26 Physical Exam - Constitutional Appears: Non-toxic, No Acute Distress - Head Exam Head Exam: ATRAUMATIC, NORMOCEPHALIC - Eye Exam Eye Exam: Normal appearance - ENT Exam ENT Exam: Mucous Membranes Moist - Respiratory Exam Respiratory Exam: Clear to Auscultation Bilateral. absent: Rales, Rhonchi, Wheezes, Stridor Additional comments: Chest pain is reproducible left lateral side pectoral muscle. - Cardiovascular Exam Cardiovascular Exam: REGULAR RHYTHM, +S1, +S2 Additional comments: Chest pain is reproducible left lateral side pectoral muscle. - GI/Abdominal Exam GI & Abdominal Exam: Normal Bowel Sounds, Soft. absent: Guarding, Tenderness - Extremities Exam Extremities exam: Positive for: normal inspection. Negative for: pedal edema - Neurological Exam Neurological exam: Alert, Oriented x3 - Psychiatric Exam Psychiatric exam: Anxious, Normal Mood Results - Vital Signs Recent Vital Signs: Last Vital Signs Temp 98.2 F 03/27/17 08:23 Pulse 82 03/27/17 08:23 Resp 18 03/27/17 08:23 BP 92/51 L 03/27/17 08:23 Pulse Ox 97 03/27/17 08:23 - Labs Result Diagrams: 03/26/17 12:40 03/26/17 12:40 Labs: Laboratory Results - last 24 hr 03/26/17 03/26/17 03/26/17 08:10 12:40 12:40 WBC 7.9 RBC 4.34 Hgb 12.4 Hct 37.1 MCV 85.4 MCH 28.6 MCHC 33.5 RDW 14.5 Plt Count 189 MPV 9.6 Neut % (Auto) 71.0 Lymph % (Auto) 19.8 L [place] % (Auto) 7.6 Eos % (Auto) 1.1 Baso % (Auto) 0.5 Neut # 5.6 Lymph # 1.6 [place] # 0.6 Eos # 0.1 Baso # 0.0 D-Dimer, Quantitative 449 H Sodium Potassium Chloride Carbon Dioxide Anion Gap BUN Creatinine Est GFR ( Amer) Est GFR (Non-Af Amer) Random Glucose Calcium Total Bilirubin AST ALT Alkaline Phosphatase Troponin I < 0.0120 Total Protein Albumin Globulin Albumin/Globulin Ratio 03/26/17 03/27/17 12:40 04:15 WBC RBC Hgb Hct MCV MCH MCHC RDW Plt Count MPV Neut % (Auto) Lymph % (Auto) [place] % (Auto) Eos % (Auto) Baso % (Auto) Neut # Lymph # [place] # Eos # Baso # D-Dimer, Quantitative Sodium 136 Potassium 3.9 Chloride 104 Carbon Dioxide 24 Anion Gap 12 BUN 5 L Creatinine 0.5 L Est GFR ( Amer) > 60 Est GFR (Non-Af Amer) > 60 Random Glucose 76 Calcium 9.2 Total Bilirubin 0.3 AST 20 ALT 24 Alkaline Phosphatase 53 Troponin I < 0.0120 < 0.0120 Total Protein 7.2 Albumin 3.8 Globulin 3.4 Albumin/Globulin Ratio 1.1 Assessment & Plan - Assessment and Plan (Free Text) Plan: Assessment/Plan 1) Chest pain secondary to pectoral muscle strain -ACS ruled out. EKG neg, trop x 3 neg -Tylenol PRN q 6h -pain improved -OB consult appreciated: patient cleared to be discharged. 2) DVT Prophylaxis -SCD
--- NOTE | 2017-03-27 09:23 | CP.PCM.HP ---
History of Present Illness - History of Present Illness History of Present Illness: iup at 25 weeks co chest dicomfort Present on Admission - Present on Admission Any Indicators Present on Admission: No - Notes: Notes:: feels better today no chest pain vital signs stable afebrile fetus moving very well Review of Systems - Hematologic/Lymphatic Additional comments: wnl Past Patient History - Past Medical History & Family History Past Medical History?: No - Past Social History Smoking Status: Never Smoked - CARDIAC Hx Cardiac Disorders: No - PULMONARY Hx Respiratory Disorders: No - NEUROLOGICAL Hx Neurological Disorder: No - HEENT Hx HEENT Problems: No - RENAL Hx Chronic Kidney Disease: No - ENDOCRINE/METABOLIC Hx Endocrine Disorders: No - HEMATOLOGICAL/ONCOLOGICAL Hx Blood Disorders: No Hx AIDS: No Hx Human Immunodeficiency Virus (HIV): No - INTEGUMENTARY Hx Dermatological Problems: No - MUSCULOSKELETAL/RHEUMATOLOGICAL Hx Musculoskeletal Disorders: No Hx Falls: No - GASTROINTESTINAL Hx Gastrointestinal Disorders: No - GENITOURINARY/GYNECOLOGICAL Hx Genitourinary Disorders: No - PSYCHIATRIC Hx Psychophysiologic Disorder: No Hx Substance Use: No - SURGICAL HISTORY Hx Surgeries: Yes Hx Section: Yes - ANESTHESIA Hx Anesthesia: Yes Hx Anesthesia Reactions: No Meds Allergies/Adverse Reactions: Allergies Allergy/AdvReac Type Severity Reaction Status Date / Time No Known Allergies Allergy Verified 09/23/16 13:26 Results - Vital Signs Recent Vital Signs: Last Vital Signs Temp 98.2 F 03/27/17 08:23 Pulse 82 03/27/17 08:23 Resp 18 03/27/17 08:23 BP 92/51 L 03/27/17 08:23 Pulse Ox 97 03/27/17 08:23 - Labs Result Diagrams: 03/26/17 12:40 03/26/17 12:40 Labs: Laboratory Results - last 24 hr 03/26/17 03/26/17 03/26/17 08:10 12:40 12:40 WBC 7.9 RBC 4.34 Hgb 12.4 Hct 37.1 MCV 85.4 MCH 28.6 MCHC 33.5 RDW 14.5 Plt Count 189 MPV 9.6 Neut % (Auto) 71.0 Lymph % (Auto) 19.8 L [place] % (Auto) 7.6 Eos % (Auto) 1.1 Baso % (Auto) 0.5 Neut # 5.6 Lymph # 1.6 [place] # 0.6 Eos # 0.1 Baso # 0.0 D-Dimer, Quantitative 449 H Sodium Potassium Chloride Carbon Dioxide Anion Gap BUN Creatinine Est GFR ( Amer) Est GFR (Non-Af Amer) Random Glucose Calcium Total Bilirubin AST ALT Alkaline Phosphatase Troponin I < 0.0120 Total Protein Albumin Globulin Albumin/Globulin Ratio 03/26/17 03/27/17 12:40 04:15 WBC RBC Hgb Hct MCV MCH MCHC RDW Plt Count MPV Neut % (Auto) Lymph % (Auto) [place] % (Auto) Eos % (Auto) Baso % (Auto) Neut # Lymph # [place] # Eos # Baso # D-Dimer, Quantitative Sodium 136 Potassium 3.9 Chloride 104 Carbon Dioxide 24 Anion Gap 12 BUN 5 L Creatinine 0.5 L Est GFR ( Amer) > 60 Est GFR (Non-Af Amer) > 60 Random Glucose 76 Calcium 9.2 Total Bilirubin 0.3 AST 20 ALT 24 Alkaline Phosphatase 53 Troponin I < 0.0120 < 0.0120 Total Protein 7.2 Albumin 3.8 Globulin 3.4 Albumin/Globulin Ratio 1.1
--- NOTE | 2017-03-27 09:24 | CP.PCM.HP ---
Present on Admission - Present on Admission Any Indicators Present on Admission: No Past Patient History - Past Medical History & Family History Past Medical History?: No - Past Social History Smoking Status: Never Smoked - CARDIAC Hx Cardiac Disorders: No - PULMONARY Hx Respiratory Disorders: No - NEUROLOGICAL Hx Neurological Disorder: No - HEENT Hx HEENT Problems: No - RENAL Hx Chronic Kidney Disease: No - ENDOCRINE/METABOLIC Hx Endocrine Disorders: No - HEMATOLOGICAL/ONCOLOGICAL Hx Blood Disorders: No Hx AIDS: No Hx Human Immunodeficiency Virus (HIV): No - INTEGUMENTARY Hx Dermatological Problems: No - MUSCULOSKELETAL/RHEUMATOLOGICAL Hx Musculoskeletal Disorders: No Hx Falls: No - GASTROINTESTINAL Hx Gastrointestinal Disorders: No - GENITOURINARY/GYNECOLOGICAL Hx Genitourinary Disorders: No - PSYCHIATRIC Hx Psychophysiologic Disorder: No Hx Substance Use: No - SURGICAL HISTORY Hx Surgeries: Yes Hx Section: Yes - ANESTHESIA Hx Anesthesia: Yes Hx Anesthesia Reactions: No Meds Allergies/Adverse Reactions: Allergies Allergy/AdvReac Type Severity Reaction Status Date / Time No Known Allergies Allergy Verified 09/23/16 13:26 Results - Vital Signs Recent Vital Signs: Last Vital Signs Temp 98.2 F 03/27/17 08:23 Pulse 82 03/27/17 08:23 Resp 18 03/27/17 08:23 BP 92/51 L 03/27/17 08:23 Pulse Ox 97 03/27/17 08:23 - Labs Result Diagrams: 03/26/17 12:40 03/26/17 12:40 Labs: Laboratory Results - last 24 hr 03/26/17 03/26/17 03/26/17 08:10 12:40 12:40 WBC 7.9 RBC 4.34 Hgb 12.4 Hct 37.1 MCV 85.4 MCH 28.6 MCHC 33.5 RDW 14.5 Plt Count 189 MPV 9.6 Neut % (Auto) 71.0 Lymph % (Auto) 19.8 L [place] % (Auto) 7.6 Eos % (Auto) 1.1 Baso % (Auto) 0.5 Neut # 5.6 Lymph # 1.6 [place] # 0.6 Eos # 0.1 Baso # 0.0 D-Dimer, Quantitative 449 H Sodium Potassium Chloride Carbon Dioxide Anion Gap BUN Creatinine Est GFR ( Amer) Est GFR (Non-Af Amer) Random Glucose Calcium Total Bilirubin AST ALT Alkaline Phosphatase Troponin I < 0.0120 Total Protein Albumin Globulin Albumin/Globulin Ratio 03/26/17 03/27/17 12:40 04:15 WBC RBC Hgb Hct MCV MCH MCHC RDW Plt Count MPV Neut % (Auto) Lymph % (Auto) [place] % (Auto) Eos % (Auto) Baso % (Auto) Neut # Lymph # [place] # Eos # Baso # D-Dimer, Quantitative Sodium 136 Potassium 3.9 Chloride 104 Carbon Dioxide 24 Anion Gap 12 BUN 5 L Creatinine 0.5 L Est GFR ( Amer) > 60 Est GFR (Non-Af Amer) > 60 Random Glucose 76 Calcium 9.2 Total Bilirubin 0.3 AST 20 ALT 24 Alkaline Phosphatase 53 Troponin I < 0.0120 < 0.0120 Total Protein 7.2 Albumin 3.8 Globulin 3.4 Albumin/Globulin Ratio 1.1
--- NOTE | 2017-03-27 09:27 | CARD ---
APPROVED REPORT EKG Measurement Heart [id number] <Conclusion> Normal sinus rhythm with sinus arrhythmia Nonspecific T wave abnormality Abnormal ECG
--- NOTE | 2017-03-27 09:27 | CP.PCM.HP ---
Present on Admission - Present on Admission Any Indicators Present on Admission: No Past Patient History - Past Medical History & Family History Past Medical History?: No - Past Social History Smoking Status: Never Smoked - CARDIAC Hx Cardiac Disorders: No - PULMONARY Hx Respiratory Disorders: No - NEUROLOGICAL Hx Neurological Disorder: No - HEENT Hx HEENT Problems: No - RENAL Hx Chronic Kidney Disease: No - ENDOCRINE/METABOLIC Hx Endocrine Disorders: No - HEMATOLOGICAL/ONCOLOGICAL Hx Blood Disorders: No Hx AIDS: No Hx Human Immunodeficiency Virus (HIV): No - INTEGUMENTARY Hx Dermatological Problems: No - MUSCULOSKELETAL/RHEUMATOLOGICAL Hx Musculoskeletal Disorders: No Hx Falls: No - GASTROINTESTINAL Hx Gastrointestinal Disorders: No - GENITOURINARY/GYNECOLOGICAL Hx Genitourinary Disorders: No - PSYCHIATRIC Hx Psychophysiologic Disorder: No Hx Substance Use: No - SURGICAL HISTORY Hx Surgeries: Yes Hx Section: Yes - ANESTHESIA Hx Anesthesia: Yes Hx Anesthesia Reactions: No Meds Allergies/Adverse Reactions: Allergies Allergy/AdvReac Type Severity Reaction Status Date / Time No Known Allergies Allergy Verified 09/23/16 13:26 Results - Vital Signs Recent Vital Signs: Last Vital Signs Temp 98.2 F 03/27/17 08:23 Pulse 82 03/27/17 08:23 Resp 18 03/27/17 08:23 BP 92/51 L 03/27/17 08:23 Pulse Ox 97 03/27/17 08:23 - Labs Result Diagrams: 03/26/17 12:40 03/26/17 12:40 Labs: Laboratory Results - last 24 hr 03/26/17 03/26/17 03/26/17 08:10 12:40 12:40 WBC 7.9 RBC 4.34 Hgb 12.4 Hct 37.1 MCV 85.4 MCH 28.6 MCHC 33.5 RDW 14.5 Plt Count 189 MPV 9.6 Neut % (Auto) 71.0 Lymph % (Auto) 19.8 L [place] % (Auto) 7.6 Eos % (Auto) 1.1 Baso % (Auto) 0.5 Neut # 5.6 Lymph # 1.6 [place] # 0.6 Eos # 0.1 Baso # 0.0 D-Dimer, Quantitative 449 H Sodium Potassium Chloride Carbon Dioxide Anion Gap BUN Creatinine Est GFR ( Amer) Est GFR (Non-Af Amer) Random Glucose Calcium Total Bilirubin AST ALT Alkaline Phosphatase Troponin I < 0.0120 Total Protein Albumin Globulin Albumin/Globulin Ratio 03/26/17 03/27/17 12:40 04:15 WBC RBC Hgb Hct MCV MCH MCHC RDW Plt Count MPV Neut % (Auto) Lymph % (Auto) [place] % (Auto) Eos % (Auto) Baso % (Auto) Neut # Lymph # [place] # Eos # Baso # D-Dimer, Quantitative Sodium 136 Potassium 3.9 Chloride 104 Carbon Dioxide 24 Anion Gap 12 BUN 5 L Creatinine 0.5 L Est GFR ( Amer) > 60 Est GFR (Non-Af Amer) > 60 Random Glucose 76 Calcium 9.2 Total Bilirubin 0.3 AST 20 ALT 24 Alkaline Phosphatase 53 Troponin I < 0.0120 < 0.0120 Total Protein 7.2 Albumin 3.8 Globulin 3.4 Albumin/Globulin Ratio 1.1
--- NOTE | 2017-03-27 09:35 | CP.PCM.HP ---
History of Present Illness - History of Present Illness History of Present Illness: iup at 25 weeks with chest discomfort Present on Admission - Present on Admission Any Indicators Present on Admission: No - Notes: Notes:: none Review of Systems - Cardiovascular Cardiovascular: As Per HPI Past Patient History - Past Medical History & Family History Past Medical History?: No - Past Social History Smoking Status: Never Smoked - CARDIAC Hx Cardiac Disorders: No - PULMONARY Hx Respiratory Disorders: No - NEUROLOGICAL Hx Neurological Disorder: No - HEENT Hx HEENT Problems: No - RENAL Hx Chronic Kidney Disease: No - ENDOCRINE/METABOLIC Hx Endocrine Disorders: No - HEMATOLOGICAL/ONCOLOGICAL Hx Blood Disorders: No Hx AIDS: No Hx Human Immunodeficiency Virus (HIV): No - INTEGUMENTARY Hx Dermatological Problems: No - MUSCULOSKELETAL/RHEUMATOLOGICAL Hx Musculoskeletal Disorders: No Hx Falls: No - GASTROINTESTINAL Hx Gastrointestinal Disorders: No - GENITOURINARY/GYNECOLOGICAL Hx Genitourinary Disorders: No - PSYCHIATRIC Hx Psychophysiologic Disorder: No Hx Substance Use: No - SURGICAL HISTORY Hx Surgeries: Yes Hx Section: Yes - ANESTHESIA Hx Anesthesia: Yes Hx Anesthesia Reactions: No Meds Allergies/Adverse Reactions: Allergies Allergy/AdvReac Type Severity Reaction Status Date / Time No Known Allergies Allergy Verified 09/23/16 13:26 Results - Vital Signs Recent Vital Signs: Last Vital Signs Temp 98.2 F 03/27/17 08:23 Pulse 82 03/27/17 08:23 Resp 18 03/27/17 08:23 BP 92/51 L 03/27/17 08:23 Pulse Ox 97 03/27/17 08:23 - Labs Result Diagrams: 03/26/17 12:40 03/26/17 12:40 Labs: Laboratory Results - last 24 hr 03/26/17 03/26/17 03/26/17 08:10 12:40 12:40 WBC 7.9 RBC 4.34 Hgb 12.4 Hct 37.1 MCV 85.4 MCH 28.6 MCHC 33.5 RDW 14.5 Plt Count 189 MPV 9.6 Neut % (Auto) 71.0 Lymph % (Auto) 19.8 L [place] % (Auto) 7.6 Eos % (Auto) 1.1 Baso % (Auto) 0.5 Neut # 5.6 Lymph # 1.6 [place] # 0.6 Eos # 0.1 Baso # 0.0 D-Dimer, Quantitative 449 H Sodium Potassium Chloride Carbon Dioxide Anion Gap BUN Creatinine Est GFR ( Amer) Est GFR (Non-Af Amer) Random Glucose Calcium Total Bilirubin AST ALT Alkaline Phosphatase Troponin I < 0.0120 Total Protein Albumin Globulin Albumin/Globulin Ratio 03/26/17 03/27/17 12:40 04:15 WBC RBC Hgb Hct MCV MCH MCHC RDW Plt Count MPV Neut % (Auto) Lymph % (Auto) [place] % (Auto) Eos % (Auto) Baso % (Auto) Neut # Lymph # [place] # Eos # Baso # D-Dimer, Quantitative Sodium 136 Potassium 3.9 Chloride 104 Carbon Dioxide 24 Anion Gap 12 BUN 5 L Creatinine 0.5 L Est GFR ( Amer) > 60 Est GFR (Non-Af Amer) > 60 Random Glucose 76 Calcium 9.2 Total Bilirubin 0.3 AST 20 ALT 24 Alkaline Phosphatase 53 Troponin I < 0.0120 < 0.0120 Total Protein 7.2 Albumin 3.8 Globulin 3.4 Albumin/Globulin Ratio 1.1
--- NOTE | 2017-03-27 09:37 | CP.PCM.DIS ---
Provider - Provider Date of Admission: 03/26/17 15:05 Attending physician: Donavon Whitaker MD Primary care physician: Jimbo Salazar MD Time Spent in preparation of Discharge (in minutes): 20 Hospital Course - Lab Results Lab Results: Most Recent Lab Values WBC 7.9 K/uL (4.8-10.8) 03/26/17 12:40 RBC 4.34 Mil/uL (3.80-5.20) 03/26/17 12:40 Hgb 12.4 g/dL (12.0-16.0) 03/26/17 12:40 Hct 37.1 % (34.0-47.0) 03/26/17 12:40 MCV 85.4 fl (81.0-99.0) 03/26/17 12:40 MCH 28.6 pg (27.0-31.0) 03/26/17 12:40 MCHC 33.5 g/dL (33.0-37.0) 03/26/17 12:40 RDW 14.5 % (11.5-14.5) 03/26/17 12:40 Plt Count 189 K/uL (130-400) 03/26/17 12:40 MPV 9.6 fl (7.2-11.7) 03/26/17 12:40 Neut % (Auto) 71.0 % (50.0-75.0) 03/26/17 12:40 Lymph % (Auto) 19.8 % (20.0-40.0) L 03/26/17 12:40 [place] % (Auto) 7.6 % (0.0-10.0) 03/26/17 12:40 Eos % (Auto) 1.1 % (0.0-4.0) 03/26/17 12:40 Baso % (Auto) 0.5 % (0.0-2.0) 03/26/17 12:40 Neut # 5.6 K/uL (1.8-7.0) 03/26/17 12:40 Lymph # 1.6 K/uL (1.0-4.3) 03/26/17 12:40 [place] # 0.6 K/uL (0.0-0.8) 03/26/17 12:40 Eos # 0.1 K/uL (0.0-0.7) 03/26/17 12:40 Baso # 0.0 K/uL (0.0-0.2) 03/26/17 12:40 D-Dimer, Quantitative 449 ng/mlDDU (0-230) H 03/26/17 12:40 Sodium 136 mmol/l (132-148) 03/26/17 12:40 Potassium 3.9 MMOL/L (3.6-5.0) 03/26/17 12:40 Chloride 104 mmol/L (98-107) 03/26/17 12:40 Carbon Dioxide 24 mmol/L (22-30) 03/26/17 12:40 Anion Gap 12 (10-20) 03/26/17 12:40 BUN 5 mg/dl (7-17) L 03/26/17 12:40 Creatinine 0.5 mg/dl (0.7-1.2) L 03/26/17 12:40 Est GFR ( Amer) > 60 03/26/17 12:40 Est GFR (Non-Af Amer) > 60 03/26/17 12:40 Random Glucose 76 mg/dL (65-105) 03/26/17 12:40 Calcium 9.2 mg/dL (8.4-10.2) 03/26/17 12:40 Total Bilirubin 0.3 mg/dl (0.2-1.3) 03/26/17 12:40 AST 20 U/L (14-36) 03/26/17 12:40 ALT 24 U/L (9-52) 03/26/17 12:40 Alkaline Phosphatase 53 U/L (38-126) 03/26/17 12:40 Troponin I < 0.0120 ng/mL (0.00-0.120) 03/27/17 04:15 Total Protein 7.2 G/DL (6.3-8.2) 03/26/17 12:40 Albumin 3.8 g/dL (3.5-5.0) 03/26/17 12:40 Globulin 3.4 gm/dL (2.2-3.9) 03/26/17 12:40 Albumin/Globulin Ratio 1.1 (1.0-2.1) 03/26/17 12:40 - Hospital Course Hospital Course: 21 yo ,f, at 20 weeks GA presented to ED c/o left side chest pain started yesterday in the morning after patient had breakfast, 10/10 intensity, pressure , not radiated, associated with chest thightness, SOB and headache. PAtient dinies fever, cough, n,v,abd pain, diarrhea, hx/o chest pain before or heart disease. She reports normal FM and denies vaginal bleeding, vaginal discharged, LOF. PAtient admitted in telemetry for observation. chest pain subsided. Patient seen and examined bediside with Dr Whitaker in Telemetry. PAtient asymptomatic this morning. she denies chest pain, SOB, nv,abd pain. Chest pain is reproducible left lateral side pectoral muscle.OB cleared patint to be discharged and f/u in 7 days Diagnosis 1) Chest pain secondary to pectoral muscle strain -ACS ruled out. EKG neg, trop x 3 neg -Tylenol PRN q 6h -pain improved -OB consult apreciated: patient cleared to be discharged. Discharge Exam - Head Exam Head Exam: ATRAUMATIC, NORMAL INSPECTION, NORMOCEPHALIC - Eye Exam Eye Exam: Normal appearance - ENT Exam ENT Exam: Mucous Membranes Moist - Respiratory Exam Respiratory Exam: Clear to PA & Lateral. absent: Rales, Rhonchi Additional comments: Chest pain is reproducible left lateral side pectoral muscle - Cardiovascular Exam Cardiovascular Exam: REGULAR RHYTHM, +S1, +S2 Additional comments: Chest pain is reproducible left lateral side pectoral muscle - GI/Abdominal Exam GI & Abdominal Exam: Normal Bowel Sounds, Soft. absent: Tenderness - Exam Exam: NORMAL INSPECTION - Neurological Exam Neurological exam: Alert, Oriented x3 - Psychiatric Exam Psychiatric exam: Normal Affect, Normal Mood - Skin Skin Exam: Intact Discharge Plan - Follow Up Plan Condition: FAIR Disposition: HOME/ ROUTINE Referrals: Jimbo Salazar MD [Primary Care Provider] -
--- NOTE | 2017-03-27 09:39 | CARD ---
APPROVED REPORT EKG Measurement Heart [id number] [place] [id number] <Conclusion> Normal sinus rhythm with sinus arrhythmia Nonspecific T wave abnormality Abnormal ECG
--- NOTE | 2017-03-27 11:06 | CARD ---
APPROVED REPORT EKG Measurement Heart [id number] <Conclusion> Normal sinus rhythm with sinus arrhythmia Nonspecific T wave abnormality Abnormal ECG
[2017-03-27 12:14] VITALS: BP 95/55; PULSE 78; TEMP 98.4; O2SAT 98
== END 2017-03-27 15:45 | disposition home or self-care (01) ==
LOC: H.ER 11:29 → H.ERHOLD 15:05 → H.TEL 17:03
PROVIDERS: ADMIT Internal Medicine; ATTEND Internal Medicine
DX: O99.89 Other specified diseases and conditions complicating pregnancy, childbirth and the puerperium (principal); S29.011A Strain of muscle and tendon of front wall of thorax, initial encounter; Z3A.25 25 weeks gestation of pregnancy; X50.9XXA Other and unspecified overexertion or strenuous movements or postures, initial encounter; Y92.9 Unspecified place or not applicable
CPT/HCPCS: 36415; 80053; 84484; 85025; 85378; 93005; 93970; 99285; G0378

== ENCOUNTER 2017-05-20 11:55 | Emergency (ER) | payer OTHER ==
[2017-05-20] MEDS: Lactated Ringer's 1,000 ML IV SCH ×2 (12:45→14:31)
[2017-05-20 12:46] VITALS: BMI 26.3
[2017-05-20 14:15] LABS: SQUAMOUS EPITHIAL 14 /hpf (0-5); URINE BACTERIA OCC (<OCC); URINE BILIRUBIN NEGATIVE (NEGATIVE); URINE BLOOD NEGATIVE (NEGATIVE); URINE CLARITY CLOUDY (Clear); URINE COLOR YELLOW (YELLOW); URINE GLUCOSE (UA) NEG (Normal); URINE LEUKOCYTE ESTERASE MOD Leu/uL (Negative); URINE NITRATE NEGATIVE (NEGATIVE); URINE PROTEIN NEGATIVE (NEGATIVE); URINE UROBILINOGEN 0.2-1.0 mg/dL (0.2-1.0)
[2017-05-20 15:37] VITALS: BP 104/64; PULSE 112; RESP 16; O2SAT 98
[2017-05-20] MEDS ORDERED: Sodium Chloride 0.9% 1,000 ML IV STA (15:49)
[2017-05-20 16:09] LABS: BASO % 0.4 % (0.0-2.0); EOS # 0.2 K/uL (0.0-0.7); EOS % 2.1 % (0.0-4.0); HEMOGLOBIN 11.7 g/dL (12.0-16.0); LYMPH # 1.2 K/uL (1.0-4.3); LYMPH % 12.7 % (20.0-40.0); MEAN CELL VOLUME 87.1 fl (81.0-99.0); MEAN CORPUSCULAR HEMOGLOBIN 29.2 pg (27.0-31.0); MEAN CORPUSCULAR HGB CONC 33.5 g/dL (33.0-37.0); MEAN PLATELET VOLUME 10.2 fl (7.2-11.7); MONO # 0.8 K/uL (0.0-0.8); MONO % 8.3 % (0.0-10.0); NEUT # 7.3 K/uL (1.8-7.0); NEUT % 76.5 % (50.0-75.0); NRBC % 0.2 % (0.0-0.0); RBC 4.02 Mil/uL (3.80-5.20); RED CELL DISTRIBUTION WIDTH 15.7 % (11.5-14.5); WHITE BLOOD COUNT 9.5 K/uL (4.8-10.8)
[2017-05-20 16:21] LABS: ALBUMIN 3.3 g/dL (3.5-5.0); ALT/SGPT 29 U/L (9-52); AST/SGOT 28 U/L (14-36); BLOOD UREA NITROGEN 5 mg/dl (7-17); CALCIUM 8.8 mg/dL (8.4-10.2); GFR AFRICAN-AMERICAN > 60; GFR NON-AFRICAN AMERICAN > 60
--- NOTE | 2017-05-20 16:37 | ED PDOC ---
HPI: General Adult Time Seen by Provider: 05/20/17 12:50 Chief Complaint (Nursing): Flu-like Symptoms Chief Complaint (Provider): Flu-like Symptoms History Per: Patient History/Exam Limitations: no limitations Onset/Duration Of Symptoms: Days (x 1) Additional Complaint(s): Ms. Sheppard is a 21 year old female (32 weeks ), who arrives to the emergency department from OB-ED after clearing evidence of premature labor, presents with flu-like symptoms including malaise, headache, sore throat and dry cough, ongoing for 1 day. Denies syncope, vaginal bleeding, recurring abdominal pain, chest pain or shortness of breath. No known sick contacts. 2 year old present at home. PMD: Provider TBD Past Medical History Reviewed: Historical Data, Nursing Documentation, Vital Signs Vital Signs: Last Vital Signs Temp 98.0 F 05/20/17 18:19 Pulse 112 H 05/20/17 15:33 Resp 16 05/20/17 15:33 BP 104/64 05/20/17 15:33 Pulse Ox 98 05/20/17 17:51 - Medical History PMH: Denies: HIV, Chronic Kidney Disease - Surgical History Surgical History: (June 2014) - Family History Family History: States: Unknown Family Hx - Home Medications Home Medications: Ambulatory Orders Medication Instructions Recorded Pnv with Ca,No.72/Iron/FA [Pnv 1 tab PO DAILY 12/11/16 Plus] Ferrous Sulfate [Feosol] 325 mg PO DAILY 03/26/17 Oseltamivir [Tamiflu] 75 mg PO BID 5 Days cap 05/20/17 - Allergies Allergies/Adverse Reactions: Allergies Allergy/AdvReac Type Severity Reaction Status Date / Time No Known Allergies Allergy Verified 09/23/16 13:26 Review of Systems ROS Statement: Except As Marked, All Systems Reviewed And Found Negative Constitutional: Positive for: Malaise ENT: Positive for: Throat Pain Cardiovascular: Negative for: Chest Pain Respiratory: Positive for: Cough (Dry). Negative for: Shortness of Breath Gastrointestinal: Negative for: Abdominal Pain Neurological: Positive for: Headache. Negative for: Other (Syncope) Physical Exam - Reviewed Nursing Documentation Reviewed: Yes Vital Signs Reviewed: Yes - Physical Exam Appears: Positive for: Well, Non-toxic Head Exam: Positive for: ATRAUMATIC, NORMAL INSPECTION, NORMOCEPHALIC Skin: Positive for: Normal Color, Warm, Dry Eye Exam: Positive for: Normal appearance, EOMI, PERRL ENT: Positive for: Pharyngeal Erythema Cardiovascular/Chest: Positive for: Regular Rate, Rhythm Respiratory: Positive for: Normal Breath Sounds. Negative for: Respiratory Distress Gastrointestinal/Abdominal: Positive for: Normal Exam Pelvic Exam: Positive for: Other (Uterine fundus above umbilicus). Negative for : Tender Uterus Back: Positive for: Normal Inspection Extremity: Positive for: Normal ROM. Negative for: Deformity Neurologic/Psych: Positive for: Alert, abstract clerk II-XII, Oriented (x 3). Negative for : Motor/Sensory Deficits - Laboratory Results Result Diagrams: 05/20/17 15:55 05/20/17 15:55 - ECG O2 Sat by Pulse Oximetry: 98 (RA) Pulse Ox Interpretation: Normal Medical Decision Making Medical Decision Making: Time: 15:49 Impression(s): 21 year old female with classical symptoms of flu and . Seen in [facility] initially and cleared for concerns Plan: - CMP - CBC - Sodium Chloride 0.9% 1,000 ml IV 1,000 mls/hr Time: 16:05 - Tamiflu Cap Treated with Tamiflu is indicated. Discussed with Dr. Renteria (who is covering for Dr. Salazar) and agrees with plan. Time: 16:52 - K-Dur 20 mEq ER Tab labs otherwise unremarkable Scribe Attestation: Documented by Ger Navarrete, acting as a scribe for Gerard Avalos III, DO Provider Scribe Attestation: All medical record entries made by the Scribe were at my direction and personally dictated by me. I have reviewed the chart and agree that the record accurately reflects my personal performance of the history, physical exam, medical decision making, and the department course for this patient. I have also personally directed, reviewed, and agree with the discharge instructions and disposition. Disposition - Clinical Impression Clinical Impression: Influenza-like symptoms, Hypokalemia, - Patient ED Disposition Is Patient to be Admitted: No Counseled Patient/Family Regarding: Studies Performed, Diagnosis, Need For Followup, Rx Given - Disposition Referrals: Jimbo Salazar MD [Primary Care Provider] - Disposition: Routine/Home Disposition Time: 17:30 Condition: STABLE Additional Instructions: OB recommended tamiflu- take 2x daily for 5 days total Drink plenty of fluids Avoid close contact with others Use tylenol for fever, body pains or headache RETURN TO ER FOR ANY WORSE OR NEW SYMPTOMS Prescriptions: Oseltamivir [Tamiflu] 75 mg PO BID 5 Days cap Instructions: Flu, Adult (DC), and the Flu Forms: [facility] (Montenegrin)
[2017-05-20] MEDS ORDERED: Potassium Chloride 20 mEq ER Tab PO ONE (16:52)
[2017-05-20 18:20] VITALS: TEMP 98
== END 2017-05-20 18:21 | disposition home or self-care (01) ==
LOC: H.ER 11:55 → H.EROB2 11:55 → H.ER 18:21
DX: J11.1 Influenza due to unidentified influenza virus with other respiratory manifestations (principal); E87.6 Hypokalemia; O99.513 Diseases of the respiratory system complicating pregnancy, third trimester; Z3A.32 32 weeks gestation of pregnancy; O26.893 Other specified pregnancy related conditions, third trimester
CPT/HCPCS: 80053; 81003; 85025; 99282; J7040; J7120

== ENCOUNTER 2017-06-25 14:57 | Inpatient (IN) | payer OTHER ==
[2017-06-25 15:47] VITALS: BMI 27.1
[2017-06-25] MEDS: Lactated Ringer's 1,000 ML IV SCH ×4 (16:09→21:22)
[2017-06-25] MEDS ORDERED: Oxytocin 30 units/LR 500ML 30 U/500 ML BAG IV SCH (17:15)
[2017-06-25] MEDS ORDERED: cefOXitin Sodium 1 GM in Sodium Chloride 0.9% 100 ML IVPB ONE (17:25)
[2017-06-25 17:53] LABS: BASO % 0.3 % (0.0-2.0); EOS # 0.1 K/uL (0.0-0.7); HEMOGLOBIN 12.6 g/dL (12.0-16.0); LYMPH # 1.7 K/uL (1.0-4.3); LYMPH % 22.4 % (20.0-40.0); MEAN CELL VOLUME 86.8 fl (81.0-99.0); MEAN CORPUSCULAR HEMOGLOBIN 29.1 pg (27.0-31.0); MEAN CORPUSCULAR HGB CONC 33.5 g/dL (33.0-37.0); MEAN PLATELET VOLUME 10.4 fl (7.2-11.7); MONO # 0.6 K/uL (0.0-0.8); MONO % 7.7 % (0.0-10.0); NEUT # 5.2 K/uL (1.8-7.0); NEUT % 68.6 % (50.0-75.0); NRBC % 0.2 % (0.0-0.0); RBC 4.34 Mil/uL (3.80-5.20); RED CELL DISTRIBUTION WIDTH 16.1 % (11.5-14.5); WHITE BLOOD COUNT 7.6 K/uL (4.8-10.8)
[2017-06-25] MEDS ORDERED: cefOXitin IV 1 gm in Dextrose 1 GM/50 ML BAG IVPB ONE (19:45)
[2017-06-25] MEDS ORDERED: Morphine 1 mg/ml preservative-free Inj(Duramorph) ONE (20:07)
[2017-06-25] MEDS ORDERED: ePHEDrine 50 mg/ml Inj ONE (20:25)
--- NOTE | 2017-06-25 21:13 | OBADHP ---
Datetime: 06/25/2017 15:54 Admit Comment, IP Provider: 21 yo at 37 weeks gestational age by SUKI 07/16/17, presented to O BED with c/o frequent ctx q5min since this morning. Pt reports she has been having intermittent pain for last 3 days. Pt went to Dr. Salazar's office this afternoon and was sent to [facility]. Pt also repo rts she had US today which showed cephalic presentation and fetus wt 7 lbs. Denies LOF or VB. Report s +FM. Pt had in 2014 and desires repeat . care with Dr. Robert Salazar. OBGYN hx: 1 prior in 2014 at 39+ weeks due to failure to descend. No complications with current . GYNhx: Denies hx STI. PAP in 11/2016 shows ASCUS/LGSIL0 Med hx: HSV 1, scoliosis. Surg hx: C-sec x1 Family hx: denies chronic illness in family Social hx: denies tobacco, etoh, drug use Allergies: nkda Meds: pnv Assessment: 21 yo with IUP at 37 weeks GA presents with CTX. Plan: Continuous heart tracing IVFs Re-evaluate Case d/w on-call OB Hospitalist Dr. Oleg Tipton, pgy-1 Pelvic Type - PN: Adequate Extremities - PN: Normal Abdomen - PN: Normal Back - PN: Normal Breast - PN: Normal Lungs - PN: Normal Heart - PN: Normal Thyroid - PN: Normal Neurologic - PN: Normal HEENT - PN: Normal General - PN: Normal Presentation-Admit: Vertex FHR - Baseline A Provider: 130s Membranes, Provider: Intact Contraction Comments Provider: 2-3 Gestation - Est Wks by US: 37.0 IP Chief Complaint: Uterine contractions NICHD Variability Prov Fetus A: Moderate 6-25bpm NICHD Accel Fetus A IP Provider: 15X15 FHR Category Provider Fetus A: Category I NICHD Decel Fetus A IP Provider: None Dilatation, Provider: ft Effacement, Provider: 50% Station, Provider: -2 Genitourinary Exam: Normal DTRs - PN: Normal EGA AdmitDate IP: 37.0 IP Adm Impression: Term, intrauterine ; Active labor; Intact Membranes IP Admit Plan: Admit to unit; Initiate Section protocol Datetime: 05/20/2017 12:48 IP Chief Complaint Other: flu like sx Comments, ACOG Physical Exam: SVE: closed, long, thick Vital Signs Provider: Reviewed
--- NOTE | 2017-06-25 21:17 | OBDS ---
MATERNAL INFORMATION Estimated Blood Loss (ml): 800ml Maternal Complications: None Provider Comments: delivery of live baby girl 9/9 clear fluid cord with 3 vessels placenta int act tubes and ovaries wnl LABOR SUMMARY EDC: 07/16/2017 00:00 No. Babies in Womb: 1 LABOR INFORMATION Reason for Induction: Not Applicable Steroids Given: None Reason Steroids Not Administered: Not Applicable STAGES OF LABOR Stage 3 hrs: 0 Stage 3 min: 1 CSECTION DELIVERY Primary Indication: repeat section CSection Incision: Lower Uterine Transverse BABY A INFORMATION Infant Delivery Date/Time: 06/25/2017 20:32 Method of Delivery: Born in Route : No : N/A Forceps: N/A Vacuum Extraction: N/A Shoulder Dystocia : No SHOULDER DYSTOCIA BABY A Delivery Date/Time: 06/25/2017 20:32 PRESENTATION/POSITION BABY A Presentation: Cephalic Cephalic Presentation: Vertex PLACENTA INFORMATION BABY A Placenta Delivery Time : 06/25/2017 20:33 Placenta Method of Delivery: Expressed Placenta Status: Delivered SCORES BABY A Heart Rate 1 min: >100 bpm Resp Effort 1 min: Good Cry Reflex Irritability 1 min: Cough or Sneeze or Pulls Away Muscle Tone 1 min: Active Motion Color 1 min: Body [place], Extremities Blue Resuscitation Effort 1 min: Tactile Stimulation SCORE 1 MIN: 9 Heart Rate 5 min: >100 bpm Resp Effort 5 min: Good Cry Reflex Irritability 5 min: Cough or Sneeze or Pulls Away Muscle Tone 5 min: Active Motion Color 5 min: Body [place], Extremities Blue Resuscitation Effort 5 min: Tactile Stimulation SCORE 5 MIN: 9 INFANT INFORMATION BABY A Gestational Age at Delivery: 37.0 Gestational Status: Term IDENTIFICATION/MEDS BABY A ID Band Number: [id number] WEIGHT/LENGTH BABY A Birthweight (gms): 3170 Weight (lb): 7 Infant Weight (oz): 0
[2017-06-25] MEDS ORDERED: Oxycodone/Acetaminophen 5/325 mg Tab PO PRN (21:20)
[2017-06-25] MEDS ORDERED: Naloxone 0.4 mg/ml Inj (Adult) IVP PRN (21:56)
[2017-06-25] MEDS ORDERED: DiphenhydrAMINE 50 mg/ml Inj IVP PRN (21:56)
[2017-06-26] MEDS: Lactated Ringer's 1,000 ML IV SCH (06:24)
[2017-06-26 07:08] LABS: BASO % 0.3 % (0.0-2.0); EOS # 0.1 K/uL (0.0-0.7); EOS % 0.6 % (0.0-4.0); HEMOGLOBIN 9.8 g/dL (12.0-16.0); LYMPH # 1.6 K/uL (1.0-4.3); LYMPH % 15.1 % (20.0-40.0); MEAN CELL VOLUME 86.1 fl (81.0-99.0); MEAN CORPUSCULAR HEMOGLOBIN 29.6 pg (27.0-31.0); MEAN CORPUSCULAR HGB CONC 34.3 g/dL (33.0-37.0); MEAN PLATELET VOLUME 10.3 fl (7.2-11.7); MONO # 0.7 K/uL (0.0-0.8); MONO % 7.2 % (0.0-10.0); NEUT # 7.9 K/uL (1.8-7.0); NEUT % 76.8 % (50.0-75.0); RBC 3.32 Mil/uL (3.80-5.20); RED CELL DISTRIBUTION WIDTH 15.7 % (11.5-14.5); WHITE BLOOD COUNT 10.3 K/uL (4.8-10.8)
[2017-06-26] MEDS: Oxycodone/Acetaminophen 5/325 mg Tab PO PRN (18:40)
[2017-06-27] MEDS: Oxycodone/Acetaminophen 5/325 mg Tab PO PRN (08:17)
[2017-06-27] MEDS: Simethicone 80 mg Chewtab PO PRN ×2 (09:38→18:16)
--- NOTE | 2017-06-27 14:48 | OBPPN ---
Datetime: 06/27/2017 14:45 PP Pain Prov: Within normal limits PP Nausea Prov: Denies PP Flatus Prov: Yes PP BM Prov: No PP Breasts Prov: Normal PP Heart Prov: Normal PP Lungs Prov: Normal PP Abdomen/Uterus Prov: Normal PP Lochia Prov: Normal PP Vulva/Perineum Prov: Normal PP CVA Tenderness Prov: Normal PP Extremities Prov: Normal PP C/S Incision Prov: Normal PP Progress Prov: Normal PP Impression Prov: Normal progression PP Plan Prov: Continue present management PP Progress Note Prov: stable pod2 continue present care IP PP Procedures: None Vital Signs Provider PP: Reviewed; Within Normal Limits
[2017-06-28] MEDS: Simethicone 80 mg Chewtab PO PRN (02:49)
--- NOTE | 2017-06-28 11:39 | OBPPN ---
Datetime: 06/28/2017 11:35 PP Pain Prov: Within normal limits PP Pain Prov comment: no chest or leg pains no SOB PP Nausea Prov: Denies PP Flatus Prov: Yes PP Breasts Prov: Normal PP Lungs Prov: Normal PP Abdomen/Uterus Prov: Abnormal PP Lochia Prov: Normal PP Vulva/Perineum Prov: Normal PP CVA Tenderness Prov: Normal PP Extremities Prov: Normal PP C/S Incision Prov: Normal PP Progress Prov: Normal PP Impression Prov: Normal progression PP Plan Prov: Continue present management PP Progress Note Prov: Dulcolax suppt this am Continue PO care D/C home this pm and follow up office 1 w IP PP Procedures: None Vital Signs Provider PP: Reviewed
[2017-06-28 19:52] VITALS: BP 106/63; PULSE 75; RESP 18; TEMP 97; O2SAT 98
== END 2017-06-28 15:00 | disposition home or self-care (01) | DRG 766 ==
LOC: H.EROB2 14:57 → H.L&D 17:01 → H.OB/GYN 06-26
PROVIDERS: ADMIT Specialist; ATTEND Specialist
PROC: 10D00Z1 Extraction of Products of Conception, Low, Open Approach (ICD-10-PCS; principal; 2017-06-25)
PROC: 4A1HXCZ Monitoring of Products of Conception, Cardiac Rate, External Approach (ICD-10-PCS; 2017-06-25)
DX: O34.211 Maternal care for low transverse scar from previous cesarean delivery (principal); Z37.0 Single live birth; N85.8 Other specified noninflammatory disorders of uterus; Z3A.37 37 weeks gestation of pregnancy; O69.81X0 Labor and delivery complicated by cord around neck, without compression, not applicable or unspecified

== ENCOUNTER 2017-10-25 11:29 | Emergency (ER) | payer BC, MEDICAID ==
[2017-10-25 11:33] VITALS: TEMP 98.2; O2SAT 100; BMI 21.5
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
--- NOTE | 2017-10-25 13:13 | RAD ---
Date of service: 10/25/2017 PROCEDURE: Cervical Spine Radiographs. HISTORY: Pain. COMPARISON: None. FINDINGS: BONES: Alignment maintained. No fracture. Dens Intact. DISC SPACES: Normal. SOFT TISSUES: Normal. No prevertebral soft tissue swelling. OTHER FINDINGS: None. IMPRESSION: Normal cervical spine radiographs
[2017-10-25 14:50] VITALS: BP 110/72; PULSE 78; RESP 18
== END 2017-10-25 14:49 | disposition home or self-care (01) ==
LOC: H.ER 11:29
DX: M79.1 Myalgia (principal)